=== PATIENT | male | born 1980 | race Caucasian/White ===

== ENCOUNTER 2018-11-05 15:43 | Inpatient (IN) | payer OTHER ==
[~2018-11-05] VITALS: Ht 165.1 cm; Wt 68.6 kg
[2018-11-05] MEDS ORDERED: ONDANSETRON HCL 4MG/2ML INJ IV STA (16:04)
[2018-11-05] MEDS ORDERED: SODIUM CHLORIDE 0.9% 1,000 ML IV ONE ×2 (16:04→16:31)
[2018-11-05 16:46] LABS: BASOPHILS % 0.4 % (0.0-2.0); EOSINOPHILS % 1.8 % (0.0-5.0); HEMATOCRIT. 35.7 % (42.0-52.0); HEMOGLOBIN. 12.1 g/dL (14.0-18.0); LYMPHOCYTES % 36.4 % (20.0-50.0); MEAN CORPUSCULAR HEMOGLOBIN 30.5 pg (28.0-32.0); MEAN CORPUSCULAR VOLUME 89.9 fL (80.0-94.0); MEAN PLATELET VOLUME 7.4 fl (7.4-10.4); MONOCYTES % 7.6 % (2.0-8.0); NEUTROPHILS % 53.8 % (40.0-76.0); PLATELET 183 x1000/uL (130-400); RED BLOOD CELL COUNT 3.97 mill/uL (4.7-6.1); RED CELL DISTRIBUTION WIDTH 13.2 % (11.6-14.6)
[2018-11-05 16:50] LABS: INR 1.1; PROTHROMBIN TIME 10.9 sec (9.1-11.1)
[2018-11-05 16:51] LABS: CHLORIDE 104 mEq/L (98-107)
[2018-11-05 16:56] LABS: ETHANOL BLOOD < 10 mg/dL
[2018-11-05 17:00] LABS: CREATINE KINASE 62 IU/L (39-308)
[2018-11-05] MEDS ORDERED: DOPAMINE 400MG/250ML PREMIX 250 ML IV ONE (18:15)
[2018-11-05] MEDS ORDERED: POTASSIUM CHLORIDE 20MEQ TABLET SR PO ONE (19:15)
[2018-11-05 20:08] LABS: CLARITY URINE CLEAR (CLEAR); COLOR URINE YELLOW (YELLOW); KETONES URINE NEGATIVE (NEGATIVE); LEUKOCYTE ESTERASE URINE NEGATIVE (NEGATIVE); NITRITE URINE NEGATIVE (NEGATIVE); OCCULT BLOOD URINE NEGATIVE (NEGATIVE); PH URINE 5.5 (4.5-8.0); PROTEIN URINE NEGATIVE (NEGATIVE); SPECIFIC GRAVITY URINE 1.007 (1.005-1.030); UROBILINOGEN URINE 0.2 E.U./dL (0.2-1.0)
[2018-11-05 20:28] LABS: *AMPHETAMINES SCREEN URINE NEGATIVE (NEGATIVE)
[2018-11-05 20:29] LABS: *BARBITURATES SCREEN URINE NEGATIVE (NEGATIVE); *BENZODIAZEPINES SCREEN URINE NEGATIVE (NEGATIVE); *COCAINE SCREEN URINE NEGATIVE (NEGATIVE); METHADONE URINE SCREEN NEGATIVE (NEGATIVE); OPIATES URINE SCREEN NEGATIVE (NEGATIVE); PHENCYCLIDINE URINE SCREEN NEGATIVE (NEGATIVE)
[2018-11-05 20:30] LABS: CANNABINOID URINE SCREEN PRESUMTIVE POSITIVE (NEGATIVE)
[2018-11-05 20:32] LABS: T4 FREE 1.23 ng/dL (0.76-1.46)
[2018-11-06] VITALS (36 sets, daily range): BP systolic 83–141; BP diastolic 59–100
[2018-11-06] MEDS: DOPAMINE 400MG/250ML PREMIX 250 ML IV PRN ×2 (04:21→13:04)
[2018-11-06] MEDS ORDERED: LIDOCAINE HCL 1% 20ML VIAL (Pyxis) INJ ONE (12:43)
[2018-11-06] MEDS ORDERED: MIDODRINE HCL 5MG TABLET PO SCH (13:00)
[2018-11-06] MEDS ORDERED: DOPAMINE 800MG PREMIX (DOUBLE) 250 ML IV PRN (13:00)
[2018-11-06] MEDS: ENOXAPARIN 40MG/0.4ML SYR SUBCUT SCH (13:23)
[2018-11-06] MEDS: PANTOPRAZOLE SODIUM 40 MG/VIAL IV SCH (13:23)
[2018-11-06] MEDS: SODIUM CHLORIDE 0.9% 1,000 ML IV SCH ×2 (13:57→22:13)
[2018-11-06 14:08] LABS: BASOPHILS % 0.4 % (0.0-2.0); EOSINOPHILS % 1.7 % (0.0-5.0); HEMATOCRIT. 40.7 % (42.0-52.0); HEMOGLOBIN. 13.7 g/dL (14.0-18.0); LYMPHOCYTES % 30.1 % (20.0-50.0); MEAN CORPUSCULAR HEMOGLOBIN 30.2 pg (28.0-32.0); MEAN CORPUSCULAR VOLUME 89.8 fL (80.0-94.0); MEAN PLATELET VOLUME 7.3 fl (7.4-10.4); MONOCYTES % 5.9 % (2.0-8.0); NEUTROPHILS % 61.9 % (40.0-76.0); PLATELET 210 x1000/uL (130-400); RED BLOOD CELL COUNT 4.53 mill/uL (4.7-6.1)
[2018-11-06 14:09] LABS: CHLORIDE 109 mEq/L (98-107)
[2018-11-06 14:18] LABS: PHOSPHORUS 3.5 mg/dL (2.5-4.9)
[2018-11-06 16:38] LABS: HEPATITIS B SURFACE ANTIGEN NEGATIVE
[2018-11-06 17:08] LABS: HEPATITIS A AB IGM NEGATIVE (NEGATIVE)
[2018-11-06] MEDS: MIDODRINE HCL 5MG TABLET PO SCH (18:10)
[2018-11-07] VITALS (15 sets, daily range): BP systolic 97–120; BP diastolic 41–82
[2018-11-07 05:49] LABS: BASOPHILS % 0.2 % (0.0-2.0); EOSINOPHILS % 1.7 % (0.0-5.0); HEMATOCRIT. 39.7 % (42.0-52.0); HEMOGLOBIN. 13.2 g/dL (14.0-18.0); LYMPHOCYTES % 19.5 % (20.0-50.0); MEAN CORPUSCULAR HEMOGLOBIN 29.9 pg (28.0-32.0); MEAN CORPUSCULAR VOLUME 89.9 fL (80.0-94.0); MEAN PLATELET VOLUME 7.5 fl (7.4-10.4); MONOCYTES % 7.3 % (2.0-8.0); NEUTROPHILS % 71.3 % (40.0-76.0); PLATELET 187 x1000/uL (130-400); RED BLOOD CELL COUNT 4.42 mill/uL (4.7-6.1); RED CELL DISTRIBUTION WIDTH 13.2 % (11.6-14.6)
[2018-11-07 08:08] LABS: CHLORIDE 106 mEq/L (98-107)
[2018-11-07 08:23] LABS: PHOSPHORUS 2.8 mg/dL (2.5-4.9)
[2018-11-07] MEDS: MIDODRINE HCL 5MG TABLET PO SCH ×2 (09:00→12:15)
[2018-11-07] MEDS: PANTOPRAZOLE SODIUM 40 MG/VIAL IV SCH (09:23)
[2018-11-07] MEDS: SODIUM CHLORIDE 0.9% 1,000 ML IV SCH (09:23)
[2018-11-07] MEDS: ENOXAPARIN 40MG/0.4ML SYR SUBCUT SCH (09:23)
[2018-11-08 13:11] LABS: HIV SCREEN 4G Non Reactive (Non Reactive)
== END 2018-11-07 14:15 | disposition home or self-care (01) | DRG 207 ==
LOC: ER 15:43 → CVICU 20:12 → EDBEDREQ 20:15 → EDBEDREQSVC 20:20 → ENRESERV 11-06 09:58
PROVIDERS: ADMIT Internal Medicine Nephrology; ATTEND Internal Medicine Nephrology
PROC: 05HY33Z Insertion of Infusion Device into Upper Vein, Percutaneous Approach (ICD-10-PCS; principal; 2018-11-06)
PROC: B54MZZA Ultrasonography of Right Upper Extremity Veins, Guidance (ICD-10-PCS; 2018-11-06)
DX: I95.9 Hypotension, unspecified (principal); E44.1 Mild protein-calorie malnutrition; J44.9 Chronic obstructive pulmonary disease, unspecified; D64.9 Anemia, unspecified; E87.6 Hypokalemia; I10 Essential (primary) hypertension; F41.9 Anxiety disorder, unspecified; F15.90 Other stimulant use, unspecified, uncomplicated; F12.90 Cannabis use, unspecified, uncomplicated; F32.9 Major depressive disorder, single episode, unspecified; F20.9 Schizophrenia, unspecified; Z86.73 Personal history of transient ischemic attack (TIA), and cerebral infarction without residual deficits; Z87.891 Personal history of nicotine dependence; Z88.8 Allergy status to other drugs, medicaments and biological substances
CPT/HCPCS: 36415; 36569; 71045; 76937; 80048; 80305; 82533; 82550; 83735; 83880; 84100; 84439; 84443; 84484; 86705; 86709; 86803; 87340; 87389; 93005; 93306; 96361; 96374; 96375; 99285; C1725; C9113; G0482; J1265; J1650; J2405; J3490; J7030; J7040

== ENCOUNTER 2019-01-16 18:57 | Emergency (ER) | payer OTHER | END 2019-01-16 19:43 | disposition left against medical advice (07) | LOC: ER 18:57 | DX: R68.89 Other general symptoms and signs (principal); Z53.21 Procedure and treatment not carried out due to patient leaving prior to being seen by health care provider ==